=== PATIENT | female | born 1955 | race Caucasian/White ===

== ENCOUNTER 2017-01-29 12:28 | Emergency (ER) | payer SELFPAY ==
[~2017-01-29] VITALS: Ht 157.5 cm; Wt 60.0 kg
[~2017-01-29 12:28] MED LIST: ADVI200C9 PO; BENA25TA8 PO; BUSP10 PO; CETI10 PO; DYAZ PO; FLUO-1 PO; NAPR-576 PO; QUET200 PO; SYMB160A INH
[2017-01-29 12:29] VITALS: BP 154/92; PULSE 98; RESP 20; TEMP 98.4; O2SAT 97
[2017-01-29 13:00] VITALS: BP 126/83; PULSE 90; RESP 16; O2SAT 97
[2017-01-29] MEDS ORDERED: SYMB160A INH (13:08)
[2017-01-29] MEDS ORDERED: BENA25CA4 PO (13:08)
[2017-01-29] MEDS ORDERED: CLON1TAB PO (13:08)
[2017-01-29] MEDS ORDERED: PERC10TA27 PO (13:08)
[2017-01-29] MEDS ORDERED: MORPHINE SULFATE 4 MG/ML INJ IV PUSH ONE ×2 (13:15→15:45)
[2017-01-29 13:53] LABS: AUTOMATED NEUTROPHIL # 10.1 TH/MM3 (1.8-7.7); BASOPHIL # 0.1 TH/MM3 (0-0.2); BASOPHIL % 0.4 % (0.0-2.0); EOSINOPHIL # 0.1 TH/MM3 (0-0.4); HEMATOCRIT 35.9 % (35.0-46.0); HEMO FLAGS DIFF FINAL; LYMPH % 19.5 % (9.0-44.0); LYMPHOCYTE # 2.7 TH/MM3 (1.0-4.8); MEAN CELL VOLUME 90.9 FL (80.0-100.0); MEAN CORPUSCULAR HEMOGLOBIN 31.2 PG (27.0-34.0); MEAN CORPUSCULAR HGB CONC 34.4 % (32.0-36.0); MONO % 4.8 % (0.0-8.0); NEUT % 74.3 % (16.0-70.0); PLATELET COUNT 313 TH/MM3 (150-450); RED BLOOD COUNT 3.95 MIL/MM3 (4.00-5.30); RED CELL DISTRIBUTION WIDTH 13.1 % (11.6-17.2); WHITE BLOOD COUNT 13.6 TH/MM3 (4.0-11.0)
[2017-01-29 14:22] LABS: APTT (PATIENT) 25.3 SEC (24.3-30.1); PROTHROMBIN TIME - PATIENT 10.7 SEC (9.8-11.6)
--- NOTE | 2017-01-29 14:25 | PD ---
HPI Chief Complaint: Fall Time Seen by Provider: 13:08 Travel History International Travel<30 days: No Contact w/Intl Traveler<30days: No Traveled to known affect area: No History of Present Illness HPI This is a 61-year-old female who presents the emergency department having had a fall last evening in her bathroom. She was stepping down on a stat up and fell hitting her side on tile and hitting her other side on the door. She didn't want to come to the hospital because she hates IVs but throughout the night she' s had increasing severe pain in her tailbone, lower back and left side, constant , with no vomiting. She denies being on any blood thinners. She didn't hit her head or hurt her neck. PFSH Past Medical History Asthma: Yes Bipolar Disorder: Yes Depression: Yes Cancer: No Cardiovascular Problems: Yes (history of fluttering/palpatations) COPD: Yes Diabetes: No Diminished Hearing: No Genitourinary: Yes (FREQUENT UTIS) Headaches: Yes Hypertension: Yes Musculoskeletal: Yes (herniated discs) Psychiatric: Yes (bipolar, major depression) Seizures: Yes (2012, 2013. No associated diagnoses as per patient) Influenza Vaccination: No Past Surgical History Section: Yes (x3) Gynecologic Surgery: Yes (URETHRAL DILATION) Social History Alcohol Use: Yes (occ) Tobacco Use: No Substance Use: No Allergies-Medications (Allergen,Severity, Reaction): Coded Allergies: No Known Allergies (Unverified , 01/29/17) Per pt. Reported Meds & Prescriptions Reported Meds & Active Scripts Active Reported Clonazepam 1 Mg Tab 1 Mg PO TID Percocet (Oxycodone-Acetaminophen) 10-325 mg Tab 1 Tab PO Q6H PRN Benadryl Allergy (Diphenhydramine HCl) 25 Mg Cap 25 Mg PO BID Symbicort Inh (Budesonide/Formoterol Fumarate) 160-4.5 Mcg/Act Aero 2 Puff INH Q12HR PRN Review of Systems Except as stated in HPI: all other systems reviewed are Neg Physical Exam Narrative GENERAL:Well appearing, no acute distress SKIN: Large ecchymoses over the left abdomen and a smaller area of ecchymoses along the right side HEAD: Atraumatic. Normocephalic. EYES: Pupils equal and round. No injection or drainage. ENT: Moist mucous membranes NECK: Trachea midline. No cervical spine tenderness. CARDIOVASCULAR: Regular rate and rhythm. No murmur appreciated. RESPIRATORY: Clear to auscultation. Breath sounds equal bilaterally. GASTROINTESTINAL: Abdomen soft, tender to palpation in the left upper and left lower quadrants with no rebound or guarding. MUSCULOSKELETAL: Tender over the lumbar spine and coccyx. NEUROLOGICAL: Awake and alert. No obvious cranial nerve deficits. Moving all extremities. PSYCHIATRIC: Appropriate mood and affect; insight and judgment normal. Data Data Last Documented VS Vital Signs Date Time Temp Pulse Resp B/P Pulse Ox O2 Delivery O2 Flow Rate FiO2 01/29/17 16:10 77 17 153/77 98 Room Air 01/29/17 12:29 98.4 Orders Complete Blood Count With Diff (01/29/17 13:14) Comprehensive Metabolic Panel (01/29/17 13:14) Prothrombin Time / Inr (Pt) (01/29/17 13:14) Act Partial Throm Time (Ptt) (01/29/17 13:14) Ct Abd/Pel W Iv Contrast(Rout) (01/29/17 ) Ct Lumb Spine W/O Contrast (01/29/17 ) ^ Insert Iv (01/29/17 13:14) Morphine Inj (Morphine Inj) (01/29/17 13:15) Sacrum And Coccyx (01/29/17 ) Urinalysis - C+S If Indicated (01/29/17 14:59) Morphine Inj (Morphine Inj) (01/29/17 15:45) Iohexol 350 Inj (Omnipaque 350 Inj) (01/29/17 15:47) Urine Culture (01/29/17 15:08) Ceftriaxone Inj (Rocephin Inj) (01/29/17 16:30) Labs Laboratory Tests Test 01/29/17 01/29/17 13:24 15:08 White Blood Count 13.6 TH/MM3 Red Blood Count 3.95 MIL/MM3 Hemoglobin 12.3 GM/DL Hematocrit 35.9 % Mean Corpuscular Volume 90.9 FL Mean Corpuscular Hemoglobin 31.2 PG Mean Corpuscular Hemoglobin 34.4 % Concent Red Cell Distribution Width 13.1 % Platelet Count 313 TH/MM3 Mean Platelet Volume 7.7 FL Neutrophils (%) (Auto) 74.3 % Lymphocytes (%) (Auto) 19.5 % Monocytes (%) (Auto) 4.8 % Eosinophils (%) (Auto) 1.0 % Basophils (%) (Auto) 0.4 % Neutrophils # (Auto) 10.1 TH/MM3 Lymphocytes # (Auto) 2.7 TH/MM3 Monocytes # (Auto) 0.6 TH/MM3 Eosinophils # (Auto) 0.1 TH/MM3 Basophils # (Auto) 0.1 TH/MM3 CBC Comment DIFF FINAL Differential Comment Prothrombin Time 10.7 SEC Prothromb Time International 1.0 RATIO Ratio Activated Partial 25.3 SEC Thromboplast Time Sodium Level 142 MEQ/L Potassium Level 3.6 MEQ/L Chloride Level 108 MEQ/L Carbon Dioxide Level 18.8 MEQ/L Anion Gap 15 MEQ/L Blood Urea Nitrogen 21 MG/DL Creatinine 1.11 MG/DL Estimat Glomerular Filtration 50 ML/MIN Rate Random Glucose 93 MG/DL Calcium Level 8.3 MG/DL Total Bilirubin 0.5 MG/DL Aspartate Amino Transf 23 U/L (AST/SGOT) Alanine Aminotransferase 27 U/L (ALT/SGPT) Alkaline Phosphatase 91 U/L Total Protein 7.2 GM/DL Albumin 3.7 GM/DL Urine Color YELLOW Urine Turbidity CLOUDY Urine pH 6.0 Urine Specific [place] 1.021 Urine Protein 300 mg/dL Urine Glucose (UA) NEG mg/dL Urine Ketones NEG mg/dL Urine Occult Blood MOD Urine Nitrite NEG Urine Bilirubin NEG Urine Urobilinogen LESS THAN 2.0 MG/DL Urine Leukocyte Esterase LARGE Urine RBC 39 /hpf Urine WBC /hpf Urine WBC Clumps MANY Urine Bacteria MANY /hpf Urine Hyaline Casts 69 /lpf Urine Mucus FEW /lpf Microscopic Urinalysis Comment CULTURE INDICATED MDM Medical Decision Making Medical Screen Exam Complete: Yes Emergency Medical Condition: Yes Interpretation(s) Afebrile, tachycardic, mild hypertension Leukocytosis 74% neutrophils Bicarbonate is 19 Urinalysis: Urinary tract infection Last 24 hours Impressions Sacrum and Coccyx X-Ray 01/29/17 0000 Signed Impressions: Service Date/Time: Sunday, January 29, 2017 13:39 - CONCLUSION: 1. No acute sacral fracture. Spondylolysis at the lumbosacral junction with grade 2 anterolisthesis. Ruperto Marquis MD Lumbar Spine CT 01/29/17 0000 Signed Impressions: Service Date/Time: Sunday, January 29, 2017 15:19 - CONCLUSION: 1. 10 mm anterolisthesis of L5 on S1 secondary to pars interarticularis defects. There is severe degenerative disc disease at this level with severe bilateral neural foraminal narrowing. 2. Remaining levels demonstrate no significant abnormality. Dung Blanco MD Abdomen/Pelvis CT 01/29/17 0000 Signed Impressions: Service Date/Time: Sunday, January 29, 2017 15:19 - CONCLUSION: 1. Hematoma in the subcutaneous tissues of the left flank extending over the left pelvic region without associated bony abnormality. No acute findings within the abdomen and pelvic cavity. Ruperto Marquis MD Differential Diagnosis Splenic laceration, liver laceration, kidney injury, compression fracture, coccygeal fracture Narrative Course This is a 61-year-old female who had a mechanical fall yesterday. She has impressive ecchymoses on her abdomen and is quite tender. She was placed in a monitor and an IV was established. Labs demonstrate a mild leukocytosis. She is complaining also of dysuria and frequency. Urinalysis demonstrates urinary tract infection. She is given a dose of Rocephin here in the emergency department. CT was obtained of the abdomen as well as the lumbar spine which demonstrate abdominal wall hematoma but no internal injury. I think patient is safe for outpatient follow-up Diagnosis Primary Impression: Traumatic hematoma of abdominal wall Qualified Code: S30.1XXA - Traumatic hematoma of abdominal wall, initial encounter Additional Impression: Urinary tract infection Qualified Code: N30.00 - Acute cystitis without hematuria Patient Instructions: General Instructions Additional Instructions: If you develop fever, persistent vomiting, back pain, or inability to eat return to the emergency department as your urine infection may have progressed to a kidney infection. Complete your antibiotics as prescribed. Stay well hydrated with Gatorade or water. Followup with your primary care physician in 2-3 days if your symptoms have not resolved. Med/Other Pt SpecificInfo: Prescription(s) given Scripts Oxycodone 10 Mg Tab10 Mg PO Q4H PRN (PAIN) #15 TAB Ref 0 Prov:Yolis Michael MD 01/29/17 Cephalexin (Keflex)500 Mg Uxi561 Mg PO Q12H 7 Days Ref 0 Prov:Yolis Michael MD 01/29/17 Disposition: 01 DISCHARGE HOME Condition: Stable Yolis Michael MD Jan 29, 2017 14:25
--- NOTE | 2017-01-29 14:31 | RADRPT ---
EXAM DATE/TIME: 01/29/2017 13:39 [facility] COMPARISON: No previous studies available for comparison. INDICATIONS : Tail bone pain due to fall last night. MEDICAL HISTORY : None. SURGICAL HISTORY : None. ENCOUNTER: Initial ACUITY: 1 day PAIN SCORE: 9/10 LOCATION: Sacrum and coccyx. FINDINGS: No acute sacral fracture. Bilateral pars defects at the lumbosacral junction with a grade 2 anterolis thesis. CONCLUSION: 1. No acute sacral fracture. Spondylolysis at the lumbosacral junction with grade 2 anterolisthesis. Ruperto Marquis MD on January 29, 2017 at 14:27 Board Certified Radiologist. This report was verified electronically.
[2017-01-29 14:36] LABS: ALT (GPT) 27 U/L (10-53)
[2017-01-29 14:37] LABS: ANION GAP 15 MEQ/L (5-15); AST (GOT) 23 U/L (15-37); BICARBONATE 18.8 MEQ/L (21.0-32.0); BLOOD UREA NITROGEN 21 MG/DL (7-18); CHLORIDE 108 MEQ/L (98-107); GLOMERULAR FILTRATION RATE 50 ML/MIN (>89); POTASSIUM 3.6 MEQ/L (3.5-5.1); SODIUM (NA) 142 MEQ/L (136-145)
[2017-01-29 14:38] LABS: ALKALINE PHOSPHATASE 91 U/L (45-117); TOTAL BILIRUBIN ADULT 0.5 MG/DL (0.2-1.0)
--- NOTE | 2017-01-29 15:43 | RADRPT ---
EXAM DATE/TIME: 01/29/2017 15:19 [facility] COMPARISON: No previous studies available for comparison. INDICATIONS : Fall. Left abdominal/hip bruising. IV CONTRAST: 95 cc Omnipaque 350 (iohexol) IV ORAL CONTRAST: No oral contrast ingested. RADIATION DOSE: 11.98 CTDIvol (mGy) MEDICAL HISTORY : Hypertension. Chronic obstructive pulmonary disease. SURGICAL HISTORY : None. ENCOUNTER: Initial ACUITY: 2 days PAIN SCALE: 7/10 LOCATION: Left flank TECHNIQUE: Volumetric scanning of the abdomen and pelvis was performed. Using automated exposure control and ad justment of the mA and/or kV according to patient size, radiation dose was kept as low as reasonably achievable to obtain optimal diagnostic quality images. DICOM format image data is available electro nically for review and comparison. FINDINGS: Lung bases are clear. Mild fatty liver. Spleen, adrenals, kidneys, pancreas unremarkable. No calcifie d gallstones or biliary ductal dilatation. No free fluid or free air. No bowel obstruction. There is a hematoma in the left flank extending laterally over the left pelvic bone. This measures up to 4.4 cm in diameter with surrounding bruising. Findings remain extraperitoneal. CONCLUSION: 1. Hematoma in the subcutaneous tissues of the left flank extending over the left pelvic region witho ut associated bony abnormality. No acute findings within the abdomen and pelvic cavity. Ruperto Marquis MD on January 29, 2017 at 15:36 Board Certified Radiologist. This report was verified electronically.
[2017-01-29] MEDS ORDERED: IOHEXOL 350 MG/ML 10 ML VIAL (for RAD DIAG) IV ONE (15:47)
--- NOTE | 2017-01-29 16:08 | RADRPT ---
EXAM DATE/TIME: 01/29/2017 15:19 [facility] COMPARISON: No previous studies available for comparison. INDICATIONS : Fall yesterday. Back pain. RADIATION DOSE: ; Reconstructed from previous dataset, no dose MEDICAL HISTORY : Hypertension. Chronic obstructive pulmonary disease. SURGICAL HISTORY : None. ENCOUNTER: Initial ACUITY: 2 days PAIN SCALE: 7/10 LOCATION: Bilateral back TECHNIQUE: Volumetric scanning of the lumbar spine was performed. Multiplanar reconstructions in the sagittal, coronal and oblique axial planes were performed. Using automated exposure control and adjustment of the mA and/or kV according to patient size, radiation dose was kept as low as reasonably achievable t o obtain optimal diagnostic quality images. DICOM format image data is available electronically for review and comparison. FINDINGS: VERTEBRAE: There is chronic appearing mild height loss of the superior endplate of T12 with associated Schmorl's node. ALIGNMENT: There is 10 mm of anterolisthesis of L5 on S1. T12-L1: No disc herniation, canal stenosis, or neural foraminal stenosis. L1-L2: No disc herniation, canal stenosis, or neural foraminal stenosis. L2-L3: No disc herniation, canal stenosis, or neural foraminal stenosis. There is mild facet hypertrophy. L3-L4: No disc herniation, canal stenosis, or neural foraminal stenosis. L4-L5: No disc herniation, canal stenosis, or neural foraminal stenosis. L5-S1: There are bilateral pars interarticularis defects with 10 mm of anterolisthesis. Severe disc height l oss is present with vacuum disc phenomenon and endplate sclerosis. No disc herniation is present. How ever, there is severe neural foraminal narrowing bilaterally. No canal stenosis is appreciated. CONCLUSION: 1. 10 mm anterolisthesis of L5 on S1 secondary to pars interarticularis defects. There is severe dege nerative disc disease at this level with severe bilateral neural foraminal narrowing. 2. Remaining levels demonstrate no significant abnormality. Dung Blanco MD on January 29, 2017 at 16:02 Board Certified Radiologist. This report was verified electronically.
[2017-01-29 16:10] VITALS: BP 153/77; PULSE 77; RESP 17; O2SAT 98
[2017-01-29 16:15] LABS: BACTERIA, URINE MANY /hpf; BLOOD, URINE MOD (NEG); COMMENT (UR) CULTURE INDICATED; CULTURE IF INDICATED CULTURE INDICATED; GLUCOSE,URINE NEG (NEG); HYALINE CAST, URINE 69 /lpf (RARE); KETONE, URINE NEG (NEG); MUCUS URINE FEW /lpf (OCC); NITRITE,URINE NEG (NEG); URINE COLOR YELLOW (YELLW/STRAW)
[2017-01-29] MEDS ORDERED: cefTRIAXone INJ 1,000 MG in SODIUM CHLORIDE 0.9% INJ 25 ML IV ONE (16:30)
[2017-01-29] MEDS ORDERED: OXYC-395 PO (16:39)
[2017-01-29] MEDS ORDERED: CEPH-460 PO (16:39)
== END 2017-01-29 16:59 | disposition home or self-care (01) ==
LOC: NEPD 12:28
DX: S30.1XXA Contusion of abdominal wall, initial encounter (principal); N30.00 Acute cystitis without hematuria; B96.20 Unspecified Escherichia coli [E. coli] as the cause of diseases classified elsewhere; W01.198A Fall on same level from slipping, tripping and stumbling with subsequent striking against other object, initial encounter; Y92.002 Bathroom of unspecified non-institutional (private) residence as the place of occurrence of the external cause
CPT/HCPCS: 72131; 72220; 74177; 80053; 81001; 85025; 85610; 85730; 87077; 87086; 87186; 96374; 96375; 96376; 99285; J0696; J2270; Q9967

== ENCOUNTER 2017-03-21 15:03 | Emergency (ER) | payer MEDICARE ==
[~2017-03-21] VITALS: Ht 157.5 cm; Wt 62.0 kg
[~2017-03-21 15:03] MED LIST changes: -ADVI200C9 PO; +BENA25CA4 PO; -BENA25TA8 PO; -BUSP10 PO; +CEPH-460 PO; -CETI10 PO; +CLON1TAB PO; -DYAZ PO; -FLUO-1 PO; -NAPR-576 PO; +OXYC-395 PO; +PERC10TA27 PO; -QUET200 PO
[2017-03-21 15:04] VITALS: BP 181/94; PULSE 77; RESP 16; TEMP 98.4; O2SAT 97
--- NOTE | 2017-03-21 15:10 | PD ---
Physical Exam Date Seen by Provider: Mar 21, 2017 Time Seen by Provider: 15:07 Narrative 61-year-old female presents the emergency department with history of recurrent UTI. Patient has had increased urinary frequency, burning, dysuria, and hematuria with clots. Patient has history of this past. Patient states it' s been worsening over the past 4 days. Patient has lower abdominal discomfort and distention. She has no known drug allergies. She states her pain is 10 over 10 with urination. Urinalysis is ordered. Vital signs are stable. Patient is awaiting bed placement. Data Data Last Documented VS Vital Signs Date Time Temp Pulse Resp B/P (MAP) Pulse Ox O2 Delivery O2 Flow Rate FiO2 03/21/17 15:04 98.4 77 16 181/94 (123) 97 Room Air [facility] Medical Record Reviewed: Yes Supervised Visit with KIRSTIN: Yes Condition: Stable Rodri Wilson Mar 21, 2017 15:10
[2017-03-21 15:49] LABS: BACTERIA, URINE MOD /hpf; BLOOD, URINE MOD (NEG); COMMENT (UR) CULTURE INDICATED; CULTURE IF INDICATED CULTURE INDICATED; GLUCOSE,URINE NEG (NEG); KETONE, URINE NEG (NEG); NITRITE,URINE NEG (NEG); RENAL EPITHELIAL CELLS 1 /hpf; URINE COLOR LIGHT-YELLOW (YELLW/STRAW)
[2017-03-21] MEDS ORDERED: SULFAMETHOXAZOLE-TRIMETHOPRIM DS 800-160 MG TAB PO ONE (17:30)
[2017-03-21] MEDS ORDERED: PHENAZOPYRIDINE HCL 200 MG TAB PO ONE (17:30)
--- NOTE | 2017-03-21 17:30 | PD ---
HPI Chief Complaint: Complaint Time Seen by Provider: 17:25 Travel History International Travel<30 days: No Contact w/Intl Traveler<30days: No Traveled to known affect area: No History of Present Illness HPI Patient comes in complaining of UTI symptoms ongoing for 4-5 days. Patient states she's tried increasing her fluid intake with no improvement of symptoms. Patient states she gets UTIs about once every 2 months but has not seen a urologist since 1994. States that her primary care doctor typically gives her Bactrim that seems to alleviate her symptoms. Patient denies any back pain, fevers, nausea, vomiting, diarrhea, chest pain, shortness of breath. Patient describes pain is sharp stabbing like suprapubic area that is constant along with the dysuria similar to previous UTIs. Patient requesting morphine or Dilaudid for her pain. Patient also requesting an ultrasound of her bladder PFSH Past Medical History Asthma: Yes Bipolar Disorder: Yes Depression: Yes Cancer: No Cardiovascular Problems: Yes (history of fluttering/palpatations) COPD: Yes Diabetes: No Diminished Hearing: No Genitourinary: Yes (FREQUENT UTIS) Headaches: Yes Hypertension: Yes Musculoskeletal: Yes (herniated discs) Psychiatric: Yes (bipolar, major depression) Respiratory: Yes (COPD) Seizures: Yes (2011, 2013. No associated diagnoses as per patient) Past Surgical History Section: Yes (x3) Gynecologic Surgery: Yes (URETHRAL DILATION) Social History Alcohol Use: Yes (occ) Tobacco Use: No Substance Use: No Allergies-Medications (Allergen,Severity, Reaction): Coded Allergies: No Known Allergies (Unverified , 03/21/17) Per pt. Reported Meds & Prescriptions Reported Meds & Active Scripts Active Pyridium (Phenazopyridine HCl) 100 Mg Tab 100 Mg PO Q8HR 2 Days Bactrim DS (Sulfamethoxazole-Trimethoprim) 800-160 Mg Tab 1 Tab PO BID Oxycodone (Oxycodone HCl) 10 Mg Tab 10 Mg PO Q4H PRN Keflex (Cephalexin) 500 Mg Cap 500 Mg PO Q12H 7 Days Reported Clonazepam 1 Mg Tab 1 Mg PO TID Percocet (Oxycodone-Acetaminophen) 10-325 mg Tab 1 Tab PO Q6H PRN Benadryl Allergy (Diphenhydramine HCl) 25 Mg Cap 25 Mg PO BID Symbicort Inh (Budesonide/Formoterol Fumarate) 160-4.5 Mcg/Act Aero 2 Puff INH Q12HR PRN Review of Systems Except as stated in HPI: all other systems reviewed are Neg Physical Exam Narrative GENERAL: Well-developed, overly nourished, in no acute distress, and non-ill appearing. SKIN: Focused skin assessment warm and dry. HEAD: Atraumatic. Normocephalic. EYES: Pupils equal and round. EOMI. No scleral icterus. No injection or drainage. ENT: No nasal bleeding or discharge. Mucous membranes pink and moist. NECK: Trachea midline. Supple. No nuclear rigidity. RESPIRATORY: No accessory muscle use. No respiratory distress. Clear to auscultation. Breath sounds equal bilaterally. GASTROINTESTINAL: Abdomen soft, nondistended, and no guarding. Hepatic and splenic margins not palpable. Normal bowel sounds 4. No pulsatile mass. No CVA tenderness. Patient reports tenderness to palpation suprapubic area MUSCULOSKELETAL: No obvious deformities. No clubbing. No cyanosis. No edema. Full range of motion. NEUROLOGICAL: Awake and alert. No obvious cranial nerve deficits. Motor grossly within normal limits. Normal speech. PSYCHIATRIC: Appropriate mood and affect; insight and judgment normal. Data Data Last Documented VS Vital Signs Date Time Temp Pulse Resp B/P (MAP) Pulse Ox O2 Delivery O2 Flow Rate FiO2 03/21/17 17:34 03/21/17 15:04 98.4 77 16 97 Room Air Orders Orders Urinalysis - C+S If Indicated (03/21/17 15:11) Urine Culture (03/21/17 15:20) Sulfamet-Trimeth Ds 800-160 Mg (Bactrim (03/21/17 17:30) Phenazopyridine (Pyridium) (03/21/17 17:30) Labs Laboratory Tests Test 03/21/17 15:20 Urine Color LIGHT-YELLOW Urine Turbidity CLOUDY Urine pH 6.0 Urine Specific [place] 1.013 Urine Protein 30 mg/dL Urine Glucose (UA) NEG mg/dL Urine Ketones NEG mg/dL Urine Occult Blood MOD Urine Nitrite NEG Urine Bilirubin NEG Urine Urobilinogen LESS THAN 2.0 MG/DL Urine Leukocyte Esterase LARGE Urine RBC 17 /hpf Urine WBC /hpf Urine Renal Epithelial Cells 1 /hpf Urine Bacteria MOD /hpf Microscopic Urinalysis Comment CULTURE INDICATED MDM Medical Decision Making Medical Screen Exam Complete: Yes Emergency Medical Condition: Yes Differential Diagnosis UTI, pyelonephritis, renal calculi, cystitis, other Narrative Course I explained to the patient that morphine and/or Dilaudid is not indicate for UTI infection, without give her dose of Pyridium and her first dose of antibiotics here to help alleviate her symptoms. Also explain patient needs to follow up with urology for possible ultrasound versus other testing for her recurrent UTIs. Patient is agreeable to this. The patient presentation with history and evaluation are consistent with UTI. There is no evidence of pyelonephritis. The patient is tolerating fluids, no fever and no back pain. There is no clinical evidence to suggest atypical cervicitis, PID, appendicitis. The patient had a prescription for antibiotics and given warnings to return if condition worsens in any way, fever, vomiting and unable to tolerate medications or fluids, back pain or as needed. The patient was instructed to follow up with their physician and/or urologist. The patient agrees with plan of care. After patient was agreeable to plan of care. Patient refused the medication that was ordered here along with the prescriptions saying that she could've called her primary care doctor to get these prescriptions without being seen and she is just wanting pain medication to help her until she can contact her primary care doctor tomorrow. Patient angrily ambulated without difficulty out of ED at discharge. Diagnosis Primary Impression: Urinary tract infection Qualified Codes: N39.0 - Urinary tract infection, site not specified; R31.9 - Hematuria, unspecified Patient Instructions: General Instructions, Urinary Tract Infection in Women ( ED) Additional Instructions: Follow-up with your primary care physician and/or urology next week for reevaluation. Take all medication as prescribed. Return to the emergency department if symptoms get worse. Med/Other Pt SpecificInfo: Prescription(s) given Scripts Phenazopyridine (Pyridium) 100 Mg Tab 100 MG PO Q8HR for Dysuria for 2 Days, TAB 0 Refills Prov: Samira Falk MD 03/21/17 Sulfamethoxazole-Trimethoprim (Bactrim DS) 800-160 Mg Tab 1 TAB PO BID for Infection, #14 TAB 0 Refills Prov: Samira Falk MD 03/21/17 Disposition: 01 DISCHARGE HOME Condition: Stable Abdon Johnson Mar 21, 2017 17:30
[2017-03-21] MEDS ORDERED: PHEN0.4T PO (17:31)
[2017-03-21] MEDS ORDERED: BACT800T5 PO (17:31)
== END 2017-03-21 17:50 | disposition home or self-care (01) ==
LOC: NEPK 15:03
DX: N39.0 Urinary tract infection, site not specified (principal); B96.20 Unspecified Escherichia coli [E. coli] as the cause of diseases classified elsewhere; R31.9 Hematuria, unspecified; I10 Essential (primary) hypertension
CPT/HCPCS: 81001; 87077; 87086; 87186; 99284

== ENCOUNTER 2017-04-15 03:04 | Emergency (ER) | payer MEDICARE ==
[~2017-04-15 03:04] MED LIST changes: +BACT800T5 PO; +PHEN0.4T PO
[2017-04-15 03:18] VITALS: BP 204/115; PULSE 83; RESP 20; TEMP 98.2; O2SAT 96
[2017-04-15 03:24] VITALS: PULSE 82; RESP 20; O2SAT 96
[2017-04-15 04:04] LABS: AUTOMATED NEUTROPHIL # 2.8 TH/MM3 (1.8-7.7); BASOPHIL # 0.1 TH/MM3 (0-0.2); BASOPHIL % 1.1 % (0.0-2.0); EOSINOPHIL # 0.1 TH/MM3 (0-0.4); EOSINOPHIL % 0.9 % (0.0-4.0); HEMATOCRIT 38.3 % (35.0-46.0); HEMO FLAGS DIFF FINAL; LYMPH % 46.6 % (9.0-44.0); LYMPHOCYTE # 2.9 TH/MM3 (1.0-4.8); MEAN CELL VOLUME 92.7 FL (80.0-100.0); MEAN CORPUSCULAR HEMOGLOBIN 31.2 PG (27.0-34.0); MEAN CORPUSCULAR HGB CONC 33.6 % (32.0-36.0); MONO % 6.6 % (0.0-8.0); NEUT % 44.8 % (16.0-70.0); PLATELET COUNT 283 TH/MM3 (150-450); RED BLOOD COUNT 4.14 MIL/MM3 (4.00-5.30); RED CELL DISTRIBUTION WIDTH 13.8 % (11.6-17.2); WHITE BLOOD COUNT 6.2 TH/MM3 (4.0-11.0)
--- NOTE | 2017-04-15 04:14 | PD ---
HPI Chief Complaint: Fall Time Seen by Provider: 03:12 Travel History International Travel<30 days: No Contact w/Intl Traveler<30days: No Traveled to known affect area: No History of Present Illness HPI 62-year-old white female presents to emergency department by EMS for evaluation of a fall. According to EMS there is some question whether the patient had a syncopal event. Here in the ER the patient states that she has been drinking alcohol and tripped in the kitchen falling down hitting her head. She states that she was dazed but not knocked unconscious. She has a history of chronic back pain. She states that the fall has exacerbated her chronic back pain and she also has having neck pain. She is placed in a c-collar by EMS. She denies any focal numbness or tingling. She denies any palpitations or chest pain. No nausea vomiting. No injury to the chest or abdomen. The patient admits to alcohol. She denies any other drugs. PFSH Past Medical History Asthma: Yes Bipolar Disorder: Yes Depression: Yes Cancer: No Cardiovascular Problems: Yes (history of fluttering/palpatations) COPD: Yes Diabetes: No Diminished Hearing: No Genitourinary: Yes (FREQUENT UTIS) Headaches: Yes Hypertension: Yes Medical other: Yes (scoliosis) Musculoskeletal: Yes (herniated discs) Psychiatric: Yes (bipolar, major depression) Respiratory: Yes Seizures: Yes (2011, 2012. No associated diagnoses as per patient) ?: Not Past Surgical History Section: Yes (x3) Gynecologic Surgery: Yes (URETHRAL DILATION) Social History Alcohol Use: Yes (occ) Tobacco Use: No Substance Use: No Allergies-Medications (Allergen,Severity, Reaction): Coded Allergies: No Known Allergies (Unverified , 03/21/17) Per pt. Reported Meds & Prescriptions Reported Meds & Active Scripts Active Pyridium (Phenazopyridine HCl) 100 Mg Tab 100 Mg PO Q8HR 2 Days Bactrim DS (Sulfamethoxazole-Trimethoprim) 800-160 Mg Tab 1 Tab PO BID Oxycodone (Oxycodone HCl) 10 Mg Tab 10 Mg PO Q4H PRN Keflex (Cephalexin) 500 Mg Cap 500 Mg PO Q12H 7 Days Reported Clonazepam 1 Mg Tab 1 Mg PO TID Percocet (Oxycodone-Acetaminophen) 10-325 mg Tab 1 Tab PO Q6H PRN Benadryl Allergy (Diphenhydramine HCl) 25 Mg Cap 25 Mg PO BID Symbicort Inh (Budesonide/Formoterol Fumarate) 160-4.5 Mcg/Act Aero 2 Puff INH Q12HR PRN Review of Systems ROS Limitations: Intoxication Physical Exam Narrative GENERAL: Well-developed, well-nourished in no apparent distress. Nontoxic appearing. Smells of EtOH appears intoxicated. HEAD: Patient is in a c-collar with a ayres dressing in place. Patient has a 3.5 cm laceration to the left posterior occiput. Small hematoma. No bony step off. EYES: Pupils equal round and reactive. Extraocular motions intact. No scleral icterus. No injection or drainage. ENT: Nose clear. Throat without erythema, tonsillar hypertrophy or exudate. Uvula midline. Airway patent. NECK: Trachea midline. C-collar in place. CARDIOVASCULAR: Regular rate and rhythm without murmurs, gallops, or rubs. RESPIRATORY: Clear to auscultation. Breath sounds equal bilaterally. No wheezes , rales, or rhonchi. GASTROINTESTINAL: Abdomen soft, non-tender, nondistended. No hepato-splenomegaly , or palpable masses. No guarding. EXTREMITIES: No clubbing, cyanosis, or edema. No joint tenderness. BACK: Nontender without deformity. No flank tenderness. NEUROLOGICAL: Awake, alert and oriented but smells of EtOH and appears intoxicated..Cranial nerves grossly intact. Motor and sensory grossly within normal limits. slurred speech speech. Data Data Last Documented VS Vital Signs Date Time Temp Pulse Resp B/P (MAP) Pulse Ox O2 Delivery O2 Flow Rate FiO2 04/15/17 03:24 82 20 96 Room Air 04/15/17 03:18 98.2 204/115 (144) Orders Orders Electrocardiogram (04/15/17 03:13) Complete Blood Count With Diff (04/15/17 03:13) Comprehensive Metabolic Panel (04/15/17 03:13) Troponin I (04/15/17 03:13) Prothrombin Time / Inr (Pt) (04/15/17 03:13) Act Partial Throm Time (Ptt) (04/15/17 03:13) Ua Includes Microscopic (04/15/17 03:13) Iv Access Insert/Monitor (04/15/17 03:13) Ecg Monitoring (04/15/17 03:13) Oximetry (04/15/17 03:13) Alcohol (Ethanol) (04/15/17 03:13) Ct Brain W/O Iv Contrast(Rout) (04/15/17 03:13) Ct Cerv Spine W/O Contrast (04/15/17 03:13) Naproxen (Naprosyn) (04/15/17 04:15) Ice/Cold Pack (04/15/17 04:23) Acetaminophen (Tylenol) (04/15/17 04:45) Potassium Chloride (Kcl) (04/15/17 04:45) Haloperidol Inj (Haldol Inj) (04/15/17 05:15) Lorazepam Inj (Ativan Inj) (04/15/17 05:15) Restraints Non-Violent ROSE.Q3H (04/15/17 05:12) Labs Laboratory Tests Test 04/15/17 03:50 White Blood Count 6.2 TH/MM3 Red Blood Count 4.14 MIL/MM3 Hemoglobin 12.9 GM/DL Hematocrit 38.3 % Mean Corpuscular Volume 92.7 FL Mean Corpuscular Hemoglobin 31.2 PG Mean Corpuscular Hemoglobin Concent 33.6 % Red Cell Distribution Width 13.8 % Platelet Count 283 TH/MM3 Mean Platelet Volume 7.3 FL Neutrophils (%) (Auto) 44.8 % Lymphocytes (%) (Auto) 46.6 % Monocytes (%) (Auto) 6.6 % Eosinophils (%) (Auto) 0.9 % Basophils (%) (Auto) 1.1 % Neutrophils # (Auto) 2.8 TH/MM3 Lymphocytes # (Auto) 2.9 TH/MM3 Monocytes # (Auto) 0.4 TH/MM3 Eosinophils # (Auto) 0.1 TH/MM3 Basophils # (Auto) 0.1 TH/MM3 CBC Comment DIFF FINAL Differential Comment Prothrombin Time 10.6 SEC Prothromb Time International Ratio 1.0 RATIO Activated Partial Thromboplast Time 25.9 SEC Blood Urea Nitrogen 15 MG/DL Creatinine 0.67 MG/DL Random Glucose 85 MG/DL Total Protein 7.3 GM/DL Albumin 3.8 GM/DL Calcium Level 7.9 MG/DL Alkaline Phosphatase 157 U/L Aspartate Amino Transf (AST/SGOT) 24 U/L Alanine Aminotransferase (ALT/SGPT) 56 U/L Total Bilirubin 0.2 MG/DL Sodium Level 147 MEQ/L Potassium Level 3.0 MEQ/L Chloride Level 111 MEQ/L Carbon Dioxide Level 28.5 MEQ/L Anion Gap 8 MEQ/L Estimat Glomerular Filtration Rate 89 ML/MIN Troponin I LESS THAN 0.02 NG/ML Ethyl Alcohol Level 322 MG/DL MDM Medical Decision Making Medical Screen Exam Complete: Yes Emergency Medical Condition: Yes Medical Record Reviewed: Yes Interpretation(s) Last [address] 04/15/17312 Signed Impressions: Service Date/Time: Saturday, April 15, 2017 03:47 - CONCLUSION: 1. Atrophy as described above. No evidence of acute intracranial pathology. Milton Mello MD Cervical Spine CT 04/15/17312 Signed Impressions: Service Date/Time: Saturday, April 15, 2017 03:49 - CONCLUSION: 1. Mild degenerative changes as described above. There is no evidence of acute fracture. Milton Mello MD CBC & BMP Diagram 04/15/17 03:50 Total Protein 7.3, Albumin 3.8, Calcium Level 7.9 L, Alkaline Phosphatase 157 H , Aspartate Amino Transf (AST/SGOT) 24, Alanine Aminotransferase (ALT/SGPT) 56 H , Total Bilirubin 0.2 Differential Diagnosis MDM: High Differential diagnoses: Fracture, sprain, strain, dislocation, contusion, neurovascular injury Narrative Course The patient is cleared out of her c-collar. There is no single point tenderness. She complains of diffuse paracervical tenderness. CAT scan is negative for acute bony injury. Patient's CAT scan is negative for acute cranial injury. CT neck is negative for acute bony injury. Patient is intoxicated with a blood alcohol 322. During her stay here in the ER her scalp laceration has been repair with rafaela. She has become increasingly agitated and uncooperative. She is using profanities at the medical staff. She is attempting leave. At 5 AM this morning A Marchman act has been ordered and the patient is medicated with Haldol 5 mg and Ativan 1 mg and placed in soft restraints to prevent self-harm. She is impeding her care today. There is concern due to her head injury today in her scalp laceration that she is at risk for falling again with inadvertent self-harm. Procedures Procedure Narrative LACERATION LOCATION: Left posterior occiput LENGTH: 3.5 cm NUMBER OF STITCHES/RAFAELA: 6 REPAIR: The area of the laceration was prepped with Betadine and sterilely draped. The wound was copiously irrigated and explored without evidence of foreign body, tendon injury or neurovascular injury. The wound was closed using stables. This was a simple single layer repair. A sterile dressing was applied. The patient was advised to keep the dressing clean and dry. Patient tolerated the procedure well. Diagnosis Primary Impression: Head contusion Qualified Codes: S00.03XA - Contusion of scalp, initial encounter Additional Impressions: Scalp laceration Qualified Codes: S01.01XA - Laceration without foreign body of scalp, initial encounter Alcohol intoxication Qualified Codes: F10.920 - Alcohol use, unspecified with intoxication, uncomplicated Patient Instructions: General Instructions Additional Instructions: Rest. Head precautions. Tylenol for pain. Ice packs. Avoid alcohol. Daily wound care with soap, water, Neosporin. Follow-up with your medical doctor in the next 2-3 days. [place] out in 9 days. Avoid all sedating or intoxicating substances. Recheck with your physician within 1-2 days. Return to the ER for any problems. Disposition: 01 DISCHARGE HOME Condition: Stable Ruperto Guerra Apr 15, 2017 04:14
[2017-04-15] MEDS ORDERED: NAPROXEN 500 MG TAB PO ONE (04:15)
[2017-04-15 04:18] LABS: ALT (GPT) 56 U/L (10-53); ANION GAP 8 MEQ/L (5-15); APTT (PATIENT) 25.9 SEC (24.3-30.1); AST (GOT) 24 U/L (15-37); BICARBONATE 28.5 MEQ/L (21.0-32.0); BLOOD UREA NITROGEN 15 MG/DL (7-18); CHLORIDE 111 MEQ/L (98-107); GLOMERULAR FILTRATION RATE 89 ML/MIN (>89); PROTHROMBIN TIME - PATIENT 10.6 SEC (9.8-11.6); SODIUM (NA) 147 MEQ/L (136-145)
[2017-04-15 04:22] LABS: ALKALINE PHOSPHATASE 157 U/L (45-117); TOTAL BILIRUBIN ADULT 0.2 MG/DL (0.2-1.0)
[2017-04-15 04:23] LABS: ALCOHOL 322 MG/DL (0-5)
--- NOTE | 2017-04-15 04:39 | RADRPT ---
EXAM DATE/TIME: 04/15/2017 03:49 [facility] COMPARISON: No previous studies available for comparison. INDICATIONS : Trauma, fall. Laceration to head. RADIATION DOSE: 35.50 CTDIvol (mGy) MEDICAL HISTORY : Chronic obstructive pulmonary disease. Hypertension. Seizures. SURGICAL HISTORY : None. ENCOUNTER: Initial ACUITY: 1 day PAIN SCALE: 8/10 LOCATION: neck TECHNIQUE: Volumetric scanning of the cervical spine was performed. Multiplanar reconstructions in the sagittal, coronal and oblique axial planes were performed. Using automated exposure control and adjustment o f the mA and/or kV according to patient size, radiation dose was kept as low as reasonably achievable to obtain optimal diagnostic quality images. DICOM format image data is available electronically f or review and comparison. FINDINGS: Sagittal images demonstrate normal vertebral body alignment and curvature. The odontoid is intact. Th e occipital condyles and lateral masses of C1 are intact. Axial images were performed from C2-C3 to C7-T1. 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 C2-C3: No significant abnormalities identified. C3-C4: No significant abnormalities identified. C4-C5: There is mild diffuse annular bulge of the disc. The neural foramina are clear bilaterally. There is no significant spinal canal stenosis. There is mild facet arthritis bilaterally. C5-C6: No significant abnormalities identified. C6-C7: No significant abnormalities identified. C7-T1: No significant abnormalities identified. CONCLUSION: 1. Mild degenerative changes as described above. There is no evidence of acute fracture. Milton Mello MD on April 15, 2017 at 4:31 Board Certified Radiologist. This report was verified electronically.
--- NOTE | 2017-04-15 04:43 | RADRPT ---
EXAM DATE/TIME: 04/15/2017 03:47 [facility] COMPARISON: No previous studies available for comparison. INDICATIONS : Trauma, fall. Laceration to head. RADIATION DOSE: 56.35 CTDIvol (mGy) MEDICAL HISTORY : Seizures. Chronic obstructive pulmonary disease. Hypertension. SURGICAL HISTORY : None. ENCOUNTER: Initial ACUITY: 1 day PAIN SCALE: 8/10 LOCATION: cranial TECHNIQUE: Multiple contiguous axial images were obtained of the head. Using automated exposure control and adj ustment of the mA and/or kV according to patient size, radiation dose was kept as low as reasonably a chievable to obtain optimal diagnostic quality images. DICOM format image data is available electro nically for review and comparison. FINDINGS: There is no evidence of acute cortical infarction, acute hemorrhage, mass effect or midline shift. Bi frontal atrophy is present. Posterior fossa structures are unremarkable. CONCLUSION: 1. Atrophy as described above. No evidence of acute intracranial pathology. Milton Mello MD on April 15, 2017 at 4:38 Board Certified Radiologist. This report was verified electronically.
[2017-04-15] MEDS ORDERED: ACETAMINOPHEN 325 MG TAB PO ONE (04:45)
[2017-04-15] MEDS ORDERED: POTASSIUM CHLORIDE 20 MEQ CONTROLLED RELEASE TAB PO ONE (04:45)
[2017-04-15] MEDS ORDERED: HALOPERIDOL LACTATE 5 MG/ML AMP IM ONE (05:15)
[2017-04-15] MEDS ORDERED: LORazepam 2 MG/ML VIAL IM ONE (05:15)
[2017-04-15 05:45] VITALS: BP 182/92; PULSE 96; RESP 20
[2017-04-15 09:57] VITALS: BP 168/89; PULSE 82; RESP 16; O2SAT 97
[2017-04-15 10:37] LABS: BACTERIA, URINE RARE /hpf; BLOOD, URINE TRACE (NEG); GLUCOSE,URINE NEG (NEG); KETONE, URINE NEG (NEG); MUCUS URINE FEW /lpf (OCC); NITRITE,URINE NEG (NEG); SQUAMOUS EPITHELIAL CELL URINE 7 /hpf (0-5); URINE COLOR LIGHT-YELLOW (YELLW/STRAW)
--- NOTE | 2017-04-15 11:30 | PD ---
Data Data Last Documented VS Vital Signs Date Time Temp Pulse Resp B/P (MAP) Pulse Ox O2 Delivery O2 Flow Rate FiO2 04/15/17 09:57 82 16 168/89 (115) 97 Room Air 04/15/17 03:18 98.2 Orders Orders Electrocardiogram (04/15/17 03:13) Complete Blood Count With Diff (04/15/17 03:13) Comprehensive Metabolic Panel (04/15/17 03:13) Troponin I (04/15/17 03:13) Prothrombin Time / Inr (Pt) (04/15/17 03:13) Act Partial Throm Time (Ptt) (04/15/17 03:13) Ua Includes Microscopic (04/15/17 03:13) Iv Access Insert/Monitor (04/15/17 03:13) Ecg Monitoring (04/15/17 03:13) Oximetry (04/15/17 03:13) Alcohol (Ethanol) (04/15/17 03:13) Ct Brain W/O Iv Contrast(Rout) (04/15/17 03:13) Ct Cerv Spine W/O Contrast (04/15/17 03:13) Naproxen (Naprosyn) (04/15/17 04:15) Ice/Cold Pack (04/15/17 04:23) Acetaminophen (Tylenol) (04/15/17 04:45) Potassium Chloride (Kcl) (04/15/17 04:45) Haloperidol Inj (Haldol Inj) (04/15/17 05:15) Lorazepam Inj (Ativan Inj) (04/15/17 05:15) Restraints Non-Violent ROSE.Q3H (04/15/17 05:12) Diet Regular Basic (04/15/17 Breakfast) Labs Laboratory Tests Test 04/15/17 03:50 04/15/17 10:10 White Blood Count 6.2 TH/MM3 Red Blood Count 4.14 MIL/MM3 Hemoglobin 12.9 GM/DL Hematocrit 38.3 % Mean Corpuscular Volume 92.7 FL Mean Corpuscular Hemoglobin 31.2 PG Mean Corpuscular Hemoglobin Concent 33.6 % Red Cell Distribution Width 13.8 % Platelet Count 283 TH/MM3 Mean Platelet Volume 7.3 FL Neutrophils (%) (Auto) 44.8 % Lymphocytes (%) (Auto) 46.6 % Monocytes (%) (Auto) 6.6 % Eosinophils (%) (Auto) 0.9 % Basophils (%) (Auto) 1.1 % Neutrophils # (Auto) 2.8 TH/MM3 Lymphocytes # (Auto) 2.9 TH/MM3 Monocytes # (Auto) 0.4 TH/MM3 Eosinophils # (Auto) 0.1 TH/MM3 Basophils # (Auto) 0.1 TH/MM3 CBC Comment DIFF FINAL Differential Comment Prothrombin Time 10.6 SEC Prothromb Time International Ratio 1.0 RATIO Activated Partial Thromboplast Time 25.9 SEC Blood Urea Nitrogen 15 MG/DL Creatinine 0.67 MG/DL Random Glucose 85 MG/DL Total Protein 7.3 GM/DL Albumin 3.8 GM/DL Calcium Level 7.9 MG/DL Alkaline Phosphatase 157 U/L Aspartate Amino Transf (AST/SGOT) 24 U/L Alanine Aminotransferase (ALT/SGPT) 56 U/L Total Bilirubin 0.2 MG/DL Sodium Level 147 MEQ/L Potassium Level 3.0 MEQ/L Chloride Level 111 MEQ/L Carbon Dioxide Level 28.5 MEQ/L Anion Gap 8 MEQ/L Estimat Glomerular Filtration Rate 89 ML/MIN Troponin I LESS THAN 0.02 NG/ML Ethyl Alcohol Level 322 MG/DL Urine Color LIGHT-YELLOW Urine Turbidity HAZY Urine pH 6.0 Urine Specific [place] 1.011 Urine Protein TRACE mg/dL Urine Glucose (UA) NEG mg/dL Urine Ketones NEG mg/dL Urine Occult Blood TRACE Urine Nitrite NEG Urine Bilirubin NEG Urine Urobilinogen LESS THAN 2.0 MG/DL Urine Leukocyte Esterase LARGE Urine RBC 5 /hpf Urine WBC 16 /hpf Urine Squamous Epithelial Cells 7 /hpf Urine Bacteria RARE /hpf Urine Mucus FEW /lpf MDM Medical Record Reviewed: Yes Supervised Visit with KIRSTIN: Yes Narrative Course I was asked by nursing staff to reevaluate this patient. She was seen during the night and was intoxicated and wanted to leave and that is why she was placed under Marchman act. Now many hours later when she is sober and walking around she feels improved and wants to go home. She denies being a daily alcohol abuser. She had extensive medical workup. At this point I don't see much value in continuing the Marchman act. I'm going to release her from the Marchman act. We discussed outpatient rehabilitation counseling. I don't think forcing her into rehabilitation would be productive. She is ambulatory. She should talk with her primary physician about this. She had potassium replacement and no acute injury on CT of head and neck. Diagnosis Primary Impression: Head contusion Qualified Codes: S00.03XA - Contusion of scalp, initial encounter Additional Impressions: Alcohol intoxication Qualified Codes: F10.920 - Alcohol use, unspecified with intoxication, uncomplicated Scalp laceration Qualified Codes: S01.01XA - Laceration without foreign body of scalp, initial encounter Patient Instructions: General Instructions Additional Instruction: Rest. Head precautions. Tylenol for pain. Ice packs. Avoid alcohol. Daily wound care with soap, water, Neosporin. Follow-up with your medical doctor in the next 2-3 days. [place] out in 9 days. Avoid all sedating or intoxicating substances. Recheck with your physician within 1-2 days. Return to the ER for any problems. Disposition: 01 DISCHARGE HOME Condition: Stable Martin Wise MD Apr 15, 2017 11:29
--- NOTE | 2017-04-15 21:59 | EKG ---
Date Performed: 04/15/2017 Time Performed: 03:42:48 PTAGE: 62 years EKG: Sinus rhythm NORMAL ECG NO PREVIOUS TRACING DOCTOR: Anthony Ledesma Interpretating Date/Time 04/15/2017 21:58:20
== END 2017-04-15 14:54 | disposition home or self-care (01) ==
LOC: NEPD 03:04
DX: S00.03XA Contusion of scalp, initial encounter (principal); W01.0XXA Fall on same level from slipping, tripping and stumbling without subsequent striking against object, initial encounter; F10.920 Alcohol use, unspecified with intoxication, uncomplicated
CPT/HCPCS: 12002; 70450; 72125; 80053; 80307; 81001; 84484; 85025; 85610; 85730; 93005; 96372; 99285; J1630; J2060